=== PATIENT | female | born 1985 | race American Indian/Alaskan Native ===

== ENCOUNTER 2020-02-08 09:41 | Emergency (ER) ==
[2020-02-08 10:02] VITALS: BP 140/75
--- NOTE | 2020-02-08 10:46 | Emergency Department Report ---
Chief Complaint: Upper Respiratory Infection Stated Complaint: POSS COLD Time Seen by Provider: 02/08/20 10:43 - HPI History of Present Illness: Patient is a 34-year-old female presents emergency room with complaints of cold- like symptoms that began 2 days ago. She has associated rhinorrhea, nasal congestion, watering eyes, itching eyes, occasional mild dry cough. She denies any nausea, vomiting, diarrhea, fever, ear pain, sore throat, chest pain, shortness of breath, abdominal pain. No past medical history. No allergies to medications. Last menstrual cycle 01/10/2020. She denies any sick contacts or recent travel. Vitals are stable On exam: Non toxic appearing, no acute distress atraumatic, normocephalic normal appearance of the eyes, PERRL, EOMI, no periorbital edema or ecchymosis moist mucus membranes, normal oropharynx, normal TMs and canals bilaterally, no sinus tenderness palpation regular heart rate and rhythm, no gallops, no rubs, no murmurs breath sounds are clear bilaterally, no w/r/r, no stridor, no respiratory distress, no accessory muscle use A&O x4, no focal neuro deficit skin is warm, dry, intact Symptoms appear most consistent with viral URI/allergies She has no clinical signs of bacterial pneumonia or bacterial bronchitis She has no clinical signs of dehydration Discussed supportive care and symptomatic treatment with patient Patient is presenting with the symptoms during COVID-19 pandemic, discussed the possibility of COVID-19 with patient, discuss strict return precautions, discussed outpatient testing, discussed self quarantine Patient does not meet hospital criteria for admission or for hospital testing advised pt Please increase your fluid intake over the next several days. May take Tylenol as needed for fever or body aches. May take ocah-jce-dgvurxn cold symptom relief medication such as Mucinex or TheraFlu. use claritin over the counter and itch relief eye drops. Follow-up with a primary care doctor for reexamination. Return to emergency room immediately for any new or worsening symptoms including but not limited to difficulty breathing, shortness of breath, severe chest pain, unable to tolerate by mouth intake, etc. Please self quarantine for 10 days from the onset of your symptoms. Please do not go out in public. If you are around others at home please wear a mask. If you need to cough or sneeze please do so in a napkin and immediately throw it away and immediately wash your hands. Wash your hands frequently. Wipe everything down. Recommend for you to get COVID-19 testing, may have this done at primary care doctor, health department, [facility] testing center. Discussed very strict return precautions with patient Medical screening examination performed and there is no threat to life or limb at this time - Exam Vital Signs: Vital Signs 02/08/20 09:59 Temperature 98.2 F Pulse Rate 100 H Respiratory 18 Rate Blood Pressure 140/75 O2 Sat by Pulse 99 Oximetry MSE screening note: Focused history and physical exam performed. Due to findings the following was ordered: ED Medical Decision Making - Lab Data Vital Signs 02/08/20 02/08/20 09:59 11:00 Temperature 98.2 F Pulse Rate 100 H 88 Respiratory 18 18 Rate Blood Pressure 140/75 O2 Sat by Pulse 99 100 Oximetry ED Disposition for MSE Clinical Impression: Viral URI with cough Allergies Qualifiers: Encounter type: initial encounter Qualified Code(s): T78.40XA - Allergy, unspecified, initial encounter Disposition: MED SCREENING EXAM-LEFT Is pt being admited?: No Does the pt Need Aspirin: No Condition: Stable Instructions: COVID-19, Allergies (ED), Viral Syndrome (ED) Additional Instructions: Please increase your fluid intake over the next several days. May take Tylenol as needed for fever or body aches. May take iijz-rwn-rqpjucm cold symptom relief medication such as Mucinex or TheraFlu. use claritin over the counter and itch relief eye drops. Follow-up with a primary care doctor for reexamination. Return to emergency room immediately for any new or worsening symptoms including but not limited to difficulty breathing, shortness of breath, severe chest pain, unable to tolerate by mouth intake, etc. Please self quarantine for 10 days from the onset of your symptoms. Please do not go out in public. If you are around others at home please wear a mask. If you need to cough or sneeze please do so in a napkin and immediately throw it away and immediately wash your hands. Wash your hands frequently. Wipe everything down. Recommend for you to get COVID-19 testing, may have this done at primary care doctor, health department, [facility] testing center. Referrals: GORGE HENLEY MD [Staff Physician] - 2-3 Days [facility] [Provider Group] - 2-3 Days Time of Disposition: 10:45 Print Language: AFGHAN
== END 2020-02-08 11:02 | disposition left against medical advice (07) ==
LOC: ED 09:41

== ENCOUNTER 2020-05-29 23:13 | Emergency (ER) | payer SELFPAY ==
[2020-05-29 23:20] VITALS: BP 130/89
--- NOTE | 2020-05-29 23:59 | Emergency Department Report ---
<MILADY JOHNSON - Last Filed: 05/30/20 01:38> ED Female HPI - General Chief complaint: Urogenital-Female Stated complaint: BLOOD IN URINE Time Seen by Provider: 05/29/20 23:23 Source: patient Mode of arrival: Ambulatory Limitations: No Limitations - History of Present Illness Initial comments: 35-year-old female presents to the ER today complaint for 2-day history of hematuria. She reports associated intermittent left flank pain and urinary frequency. She denies any dysuria or urinary urgency. She denies any associa oliver vaginal bleeding or discharge. She denies any abdominal pain or pelvic pain. She denies nausea, vomiting fever or chills. Her last menstrual cycle was April 21, 2020. She states that she has a history of irregular menstrual cycles and therefore does not believe she is . She reports no other symptoms at this time. MD Complaint: other (hematuria) - Related Data Previous Rx's Medication Instructions Recorded Last Taken Type Naproxen 500 mg PO Q12H PRN #24 tablet 05/30/20 Unknown Rx tiZANidine [Zanaflex 4mg TAB] 4 mg PO Q8H PRN #15 tablet 05/30/20 Unknown Rx Allergies Allergy/AdvReac Type Severity Reaction Status Date / Time No Known Allergies Allergy Unverified 02/08/20 09:59 ED Review of Systems Comment: All other systems reviewed and negative Gastrointestinal: denies: abdominal pain, nausea, vomiting, diarrhea, constipation, hematemesis, hematochezia, other Genitourinary: frequency, hematuria. denies: discharge, abnormal menses, dyspareunia, other Musculoskeletal: other (Left flank pain) Skin: denies: rash, lesions, change in color, change in hair/nails, pruritus Neurological: denies: headache, weakness, numbness, paresthesias, confusion, abnormal gait, vertigo Psychiatric: denies: anxiety, depression Hematological/Lymphatic: denies: easy bleeding, easy bruising ED Past Medical Hx - Past Medical History Previous Medical History?: Yes Additional medical history: Peptic ulcers - Surgical History Past Surgical History?: No - Social History Smoking Status: Never Smoker Substance Use Type: None - Medications Home Medications: Home Medications Medication Instructions Recorded Confirmed Last Taken Type Naproxen 500 mg PO Q12H PRN #24 tablet 05/30/20 Unknown Rx tiZANidine [Zanaflex 4mg TAB] 4 mg PO Q8H PRN #15 tablet 05/30/20 Unknown Rx ED Physical Exam - General Limitations: No Limitations General appearance: alert, in no apparent distress - Head Head exam: Present: atraumatic, normocephalic, normal inspection - Eye Eye exam: Present: normal appearance, PERRL, EOMI Pupils: Present: normal accommodation - ENT ENT exam: Present: normal exam, mucous membranes moist - Neck Neck exam: Present: normal inspection, full ROM - Respiratory Respiratory exam: Present: normal lung sounds bilaterally. Absent: respiratory distress - Cardiovascular Cardiovascular Exam: Present: regular rate, normal rhythm, normal heart sounds - GI/Abdominal GI/Abdominal exam: Present: soft. Absent: distended, tenderness - Back Exam Back exam: Absent: CVA tenderness (R), CVA tenderness (L) - Neurological Exam Neurological exam: Present: alert, oriented X3, CN II-XII intact, abnormal gait - Psychiatric Psychiatric exam: Present: normal affect, normal mood - Skin Skin exam: Present: intact ED Disposition Clinical Impression: Metrorrhagia, Spasm of muscle of lower back Disposition: DC-01 TO HOME OR SELFCARE Condition: Stable Instructions: Muscle Cramps and Spasms, [id number], Metrorrhagia, [id number], Abnormal Uterine Bleeding, [id number] Additional Instructions: All lab test results were reviewed and are all nonactionable. Your symptoms are likely due to your regular menstrual cycle causing the blood in urine. Therefore take medications with food, drink plenty of fluids and follow-up with your [employer] physician in 5 to 7 days for reevaluation. Return to the ED immediately if symptoms get worse. Prescriptions: Naproxen 500 mg PO Q12H PRN #24 tablet PRN Reason: Pain , Severe (7-10) tiZANidine [Zanaflex 4mg TAB] 4 mg PO Q8H PRN #15 tablet PRN Reason: Muscle Spasm Referrals: [facility] [Provider Group] - 3-5 Days Print Language: IVORIAN <DIANA NUÑEZ - Last Filed: 05/30/20 02:38> ED Review of Systems ROS: Stated complaint: BLOOD IN URINE Other details as noted in HPI ED Course Vital Signs 05/29/20 23:17 Temperature 98.2 F Pulse Rate 83 Respiratory 12 Rate Blood Pressure 130/89 O2 Sat by Pulse 100 Oximetry ED Medical Decision Making - Medical Decision Making I assumed care of the patient from Ms. Milady Johnson PA-C at shift change at 0200 hrs. This is a 35-year-old female presents to the ER today complaint for 2-day history of hematuria with associated intermittent left flank pain and urinary frequency. Her last menstrual cycle was April 21, 2020. She states that she has a history of irregular menstrual cycles and therefore does not believe she is . In the ED, patient is alert and oriented x3 and is not in distress. Urinalysis shows trace hematuria with no sign of urinary tract infection. Given the fact that the patient's menstrual cycle is regular and that her LMP was April 21, 2020, the blood in urine is most likely from the patient menstrual cycle that is starting. Patient was therefore discharged home and advised to return to the ED immediately if symptoms get worse, otherwise follow-up with her [employer] physician for further evaluation. - Differential Diagnosis Dysmenorrhea, metrorrhagia; UTI; ; kidney stones; Critical care attestation.: If time is entered above; I have spent that time in minutes in the direct care of this critically ill patient, excluding procedure time. ED Disposition Is pt being admited?: No Does the pt Need Aspirin: No Time of Disposition: 02:36
[2020-05-30 01:42] LABS: HCG Qualitative,Urine Negative (Negative)
[2020-05-30 01:43] LABS: Bilirubin,Urine NEG (Negative); Blood,Urine SM (Negative); Color,Urine Yellow (Yellow); Mucus,Urine 3+ /HPF
== END 2020-05-30 02:51 | disposition home or self-care (01) ==
LOC: ED 23:13
DX: N92.1 Excessive and frequent menstruation with irregular cycle (principal); M62.830 Muscle spasm of back; Z79.899 Other long term (current) drug therapy
CPT/HCPCS: 81001; 81025; 99283